=== PATIENT | male | born 1965 | race Caucasian/White ===

== ENCOUNTER 2020-09-25 06:15 | Day surgery (SDC) | payer MEDICAID ==
[2020-09-25] MEDS ORDERED: Sodium Chloride 0.9% 1,000 ML IV SCH (07:15)
[2020-09-25] MEDS ORDERED: fentaNYL 100 MCG/2 ML SDV ONE (07:27)
[2020-09-25] MEDS ORDERED: Midazolam 1 MG/ML 2 ML SDV ONE (07:27)
[2020-09-25] MEDS ORDERED: Propofol 200 MG/20 ML SDV ONE ×3 (07:27→08:43)
[2020-09-25 09:11] VITALS: PULSE 56
[2020-09-25 09:43] VITALS: BP 131/70
--- NOTE | 2020-09-25 10:16 | OR ---
DATE OF PROCEDURE: 09/25/2020 SURGEON: Bob Gambino MD PROCEDURE: Colonoscopy. FINDINGS: 1. Ascending colon polyp, approximately 1 cm, completely removed using hot snare wire device. 2. Transverse colon polyp #1, completely removed using cold biopsy forceps, approximately 5 mm. 3. Transverse colon polyp #2, approximately 5 mm, completely removed using hot snare wire device. 4. Descending colon polyp #1, approximately 5 mm, completely removed using cold biopsy forceps. 5. Descending #2, approximately 8 mm, completely removed using cold biopsy forceps. 6. Descending colon polyp #3, approximately 5 mm, completely removed using cold biopsy forceps. 7. Descending colon polyp #4, approximately 5 mm, completely removed using cold biopsy forceps. 8. Descending colon polyp #5, approximately 5 mm, completely removed using cold snare wire device. 9. Sigmoid colon polyp #1, approximately 8 mm, completely removed using hot snare wire device. 10.Sigmoid colon polyp #2, approximately 5 mm, completely removed using cold biopsy forceps. COMPLICATIONS: None. REMEDIATION TECHNICIAN: None. ANESTHESIA: MAC. PREOPERATIVE DIAGNOSIS: Screening colonoscopy. POSTOPERATIVE DIAGNOSES: Screening colonoscopy, positive Cologuard. RISKS: Risks, benefits, alternatives, and limitations including, but not limited to infection, bleeding, perforation, false positives and false negatives. PROCEDURE IN DETAIL: The patient was placed in left lateral decubitus position. Digital rectal exam was performed without abnormality. Scope was introduced and advanced atraumatically to the ileocecal valve. A photo was taken of this. The aforementioned polyps were completely removed as described above. There was no diverticulosis. No old or new blood. The prep was marginal, approximately 80% of the luminal surface could be seen. Greater than 20 minutes was used to remove the scope. No abnormalities on retroflexion. The patient tolerated the procedure well. Bob Gambino MD /[id number]
== END 2020-09-25 09:47 | disposition home or self-care (01) ==
LOC: JP.SDS 06:15
PROVIDERS: ATTEND Surgery
DX: D12.2 Benign neoplasm of ascending colon (principal); D12.3 Benign neoplasm of transverse colon; D12.4 Benign neoplasm of descending colon; I50.9 Heart failure, unspecified; I48.91 Unspecified atrial fibrillation; G47.30 Sleep apnea, unspecified; R73.03 Prediabetes; F17.200 Nicotine dependence, unspecified, uncomplicated; Z88.0 Allergy status to penicillin
CPT/HCPCS: 88305; J2250; J2704; J3010; J7030

== ENCOUNTER 2021-04-30 07:55 | Day surgery (SDC) | payer MEDICAID ==
[~2021-04-30 07:55] MED LIST: Midazolam 1 MG/ML 2 ML SDV ONE; Propofol 200 MG/20 ML SDV ONE; fentaNYL 100 MCG/2 ML SDV ONE
[2021-04-30] MEDS ORDERED: Sodium Chloride 0.9% 1,000 ML IV SCH (08:30)
[2021-04-30] MEDS ORDERED: Propofol 200 MG/20 ML SDV ONE (10:23)
[2021-04-30 11:48] VITALS: BP 115/66; PULSE 64
--- NOTE | 2021-05-01 08:28 | OR ---
DATE OF PROCEDURE: 04/30/2021 SURGEON: Bob Gambino MD PROCEDURE: Colonoscopy. FINDINGS: 1. Sigmoid colon polyp, approximately 8 mm, completely removed using hot snare wire device. 2. Sigmoid colon polyp #2, approximately 8 mm, completely removed using hot snare wire device. 3. Colon polyp, sigmoid colon, approximately 8 mm, completely removed using cold biopsy forceps. 4. Sigmoid colon polyp, approximately 5 mm, completely removed using cold biopsy forceps. 5. Sigmoid colon polyp, approximately 5 mm, completely removed using cold biopsy forceps. 6. Colon polyp, sigmoid colon, approximately 3 mm, completely removed using cold biopsy forceps. 7. Sigmoid colon polyp, approximately 5 mm, completely removed using cold biopsy forceps. 8. Sigmoid colon polyp, approximately 3 mm, completely removed using cold biopsy forceps. 9. Sigmoid colon polyp, approximately 3 mm, completely removed using cold biopsy forceps. 10.Sigmoid colon polyp, approximately 8 mm, completely removed using hot snare wire device. COMPLICATION: None. STORAGE GARAGE MANAGER: None. RISKS: Risks, benefits, alternatives, and limitations including, but not limited to infection, bleeding, perforation, false positives, and false negatives were explained to the patient and he wished to proceed. PROCEDURE IN DETAIL: Patient was placed in left lateral decubitus position. Digital rectal exam was performed. The scope was introduced and advanced to the ileocecal valve. The colon was rather quite long and redundant. The aforementioned polyps were completely removed, however, there were multiple polyps remaining. These were all completely removed and no abnormalities were noted. No abnormal bleeding after removal. The prep was poor and certain areas of the colon could not be well visualized due to solid and liquid stool remaining, possibly precluding up to 1 cm polyps not being able to be visualized. The patient tolerated the procedure well. Bob Gambino MD /[id number]
== END 2021-04-30 11:49 | disposition home or self-care (01) ==
LOC: JP.SDS 07:55
PROVIDERS: ATTEND Surgery
DX: K63.5 Polyp of colon (principal); I11.0 Hypertensive heart disease with heart failure; I50.9 Heart failure, unspecified; E11.9 Type 2 diabetes mellitus without complications; I48.91 Unspecified atrial fibrillation; F17.200 Nicotine dependence, unspecified, uncomplicated
CPT/HCPCS: 45380; 45385; 88305; J2250; J2704; J3010; J7030

== ENCOUNTER 2021-09-04 06:54 | Day surgery (SDC) | payer MEDICAID ==
[2021-09-04] MEDS ORDERED: Sodium Chloride 0.9% 1,000 ML IV SCH (07:30)
[2021-09-04] MEDS ORDERED: fentaNYL 100 MCG/2 ML SDV ONE (07:31)
[2021-09-04] MEDS ORDERED: Midazolam 1 MG/ML 2 ML SDV ONE (07:31)
[2021-09-04] MEDS ORDERED: Propofol 200 MG/20 ML SDV ONE (07:32)
[2021-09-04 09:09] VITALS: PULSE 68
[2021-09-04 09:20] VITALS: BP 109/66
== END 2021-09-04 09:30 | disposition home or self-care (01) ==
LOC: JP.SDS 06:54
PROVIDERS: ATTEND Surgery
DX: K29.50 Unspecified chronic gastritis without bleeding (principal); G47.33 Obstructive sleep apnea (adult) (pediatric); I11.0 Hypertensive heart disease with heart failure; I50.9 Heart failure, unspecified; I48.91 Unspecified atrial fibrillation; E78.5 Hyperlipidemia, unspecified; E66.9 Obesity, unspecified; R73.03 Prediabetes; Z88.0 Allergy status to penicillin
CPT/HCPCS: 88305; J2250; J2704; J3010; J7030

== ENCOUNTER 2022-02-22 08:38 | Emergency (ER) | payer MEDICAID ==
[2022-02-22] MEDS ORDERED: Acetaminophen 500 MG Tab PO ONE (09:05)
[2022-02-22] MEDS ORDERED: Sodium Chloride 0.9% 10 ML Syringe FLUSH PRN (09:10)
[2022-02-22 09:50] LABS: ESTIMATED GFR 80 mL/min (>60)
[2022-02-22 09:59] VITALS: BP 104/54; PULSE 76
== END 2022-02-22 11:04 | disposition home or self-care (01) ==
LOC: JP.ED 08:38
DX: M79.10 Myalgia, unspecified site (principal); R50.9 Fever, unspecified; F17.210 Nicotine dependence, cigarettes, uncomplicated; Z88.0 Allergy status to penicillin; Z79.82 Long term (current) use of aspirin; Z79.01 Long term (current) use of anticoagulants; Z79.899 Other long term (current) drug therapy; Z20.822 Contact with and (suspected) exposure to COVID-19
CPT/HCPCS: 36415; 80053; 83605; 84145; 85025; 85610; 86140; 86618; 87040; 87635; 99284; A9270; J3490; U0002

== ENCOUNTER 2022-06-25 06:09 | Day surgery (SDC) | payer MEDICAID ==
[2022-06-25] MEDS ORDERED: fentaNYL 50 MCG/ML SDV ONE (07:26)
[2022-06-25] MEDS ORDERED: Midazolam 1 MG/ML 2 ML SDV ONE (07:26)
[2022-06-25] MEDS ORDERED: Propofol 200 MG/20 ML SDV ONE ×2 (07:26→08:05)
[2022-06-25] MEDS ORDERED: Sodium Chloride 0.9% 1,000 ML IV SCH (07:30)
[2022-06-25 09:13] VITALS: BP 128/54; PULSE 58
== END 2022-06-25 09:13 | disposition home or self-care (01) ==
LOC: JP.SDS 06:09 → EEVIPCON 06:09 → JP.SDS 09:13
PROVIDERS: ATTEND Surgery
DX: Z12.11 Encounter for screening for malignant neoplasm of colon (principal); K63.5 Polyp of colon; I11.0 Hypertensive heart disease with heart failure; I50.9 Heart failure, unspecified; I48.91 Unspecified atrial fibrillation; G47.33 Obstructive sleep apnea (adult) (pediatric); E66.9 Obesity, unspecified; Z68.30 Body mass index [BMI] 30.0-30.9, adult; Z88.0 Allergy status to penicillin; Z79.899 Other long term (current) drug therapy; Z95.810 Presence of automatic (implantable) cardiac defibrillator
CPT/HCPCS: 45380; J2250; J2704; J3010; J7030

== ENCOUNTER 2022-09-28 11:26 | Emergency (ER) | payer MEDICAID ==
[2022-09-28 11:54] VITALS: BP 136/70; PULSE 65
[2022-09-28] MEDS ORDERED: Piperacillin/Tazobactam 2.25 GM in Sodium Chloride 0.9% 50 ML IV ONE (12:26)
[2022-09-28 12:38] LABS: CORONAVIRUS COVID-19 NAA NEGATIVE (NEGATIVE)
== END 2022-09-28 13:09 | disposition home or self-care (01) ==
LOC: JP.ED 11:26
DX: J32.9 Chronic sinusitis, unspecified (principal); I48.91 Unspecified atrial fibrillation; K21.9 Gastro-esophageal reflux disease without esophagitis; Z72.0 Tobacco use; Z88.0 Allergy status to penicillin; Z79.82 Long term (current) use of aspirin; Z79.01 Long term (current) use of anticoagulants; Z95.0 Presence of cardiac pacemaker; Z20.822 Contact with and (suspected) exposure to COVID-19
CPT/HCPCS: 0241U; 99284

== ENCOUNTER 2023-01-18 09:29 | Emergency (ER) | payer MEDICAID ==
[2023-01-18 09:42] VITALS: BP 108/63; PULSE 61
[2023-01-18] MEDS: methylPREDNISolone Sodium Succinate 125 MG/2 ML SDV IVPUSH ONE (10:10)
== END 2023-01-18 11:48 | disposition home or self-care (01) ==
LOC: JP.ED 09:29
DX: T78.3XXA Angioneurotic edema, initial encounter (principal); I11.0 Hypertensive heart disease with heart failure; I50.9 Heart failure, unspecified; I48.91 Unspecified atrial fibrillation; K21.9 Gastro-esophageal reflux disease without esophagitis; F17.210 Nicotine dependence, cigarettes, uncomplicated; Z88.0 Allergy status to penicillin; Z79.899 Other long term (current) drug therapy; Z79.82 Long term (current) use of aspirin; Z79.01 Long term (current) use of anticoagulants
CPT/HCPCS: 96374; 99285; J2930